=== PATIENT | female | born 1995 | race Caucasian/White ===

== ENCOUNTER 2019-04-14 22:20 | Inpatient (IN) | payer MEDICAID ==
[2019-04-14] MEDS ORDERED: LACTATED RINGER'S 1,000 ML IV (23:23)
[2019-04-14] MEDS ORDERED: OXYTOCIN 30 UNITS/LR 500 ML IV (23:30)
[2019-04-14] MEDS ORDERED: MISOPROSTOL 200 MCG TAB PR (23:30)
[2019-04-14] MEDS ORDERED: BUTORPHANOL 2 MG INJ IV (23:30)
[2019-04-14] MEDS ORDERED: IBUPROFEN 600 MG TAB PO (23:30)
[2019-04-14] MEDS ORDERED: LIDOCAINE 1% (MPF) 30 ML INJ INJ (23:30)
[2019-04-14] MEDS ORDERED: CARBOPROST 250 MCG INJ IM (23:30)
[2019-04-14] MEDS ORDERED: METHYLERGONOVINE 0.2 MG INJ IM (23:30)
[2019-04-14] MEDS: LACTATED RINGER'S 1,000 ML IV (23:53)
[2019-04-15 00:08] LABS: ADD MAN DIFF? NO
[2019-04-15 00:11] LABS: BASOPHIL # 0.1 10^3/ul (0.0-0.1); BASOPHILS % 0.4 % (0.0-2.0); EOSINOPHILS # 0.1 10^3/ul (0.0-0.5); EOSINOPHILS % 0.7 % (0.0-7.0); HEMATOCRIT 41.3 % (37.0-47.0); HEMOGLOBIN 13.9 g/dl (12.0-16.0); LYMPHOCYTES # 2.4 10^3/ul (0.8-2.9); LYMPHOCYTES % 17.6 % (15.0-51.0); MEAN CORPUSCULAR HEMOGLOBIN 29.6 pg (29.0-33.0); MEAN CORPUSCULAR HGB CONC 33.7 g/dl (32.0-37.0); MEAN CORPUSCULAR VOLUME 87.9 fl (82.0-101.0); MEAN PLATELET VOLUME 11.5 fl (7.4-10.4); MONOCYTE # 0.7 10^3/ul (0.3-0.9); MONOCYTES % 5.1 % (0.0-11.0); NEUTROPHIL # 10.3 10^3/ul (1.6-7.5); NEUTROPHILS % 74.9 % (39.0-77.0); PLATELET COUNT 225 10^3/UL (140-415); RED CELL DISTRIBUTION WIDTH 14.6 % (11.5-14.5)
[2019-04-15 00:11] LABS: WHITE BLOOD COUNT 13.7 10^3/ul (4.8-10.8)
[2019-04-15] MEDS: BUTORPHANOL 2 MG INJ IV (00:27)
[2019-04-15 00:40] LABS: INR 0.88; PT RATIO 0.9
[2019-04-15 00:41] LABS: PARTIAL THROMBOPLASTIN TIME 28.2 Sec (23.0-35.0)
[2019-04-15] MEDS: LACTATED RINGER'S 1,000 ML IV ×2 (01:26→02:55)
[2019-04-15] MEDS ORDERED: FENTAnyl 2MCG/ML-ROPIV 0.2% 100 ML (01:53)
[2019-04-15] MEDS ORDERED: DIPHENHYDRAMINE 50 MG INJ IV (03:30)
[2019-04-15] MEDS ORDERED: KETOROLAC 30 MG INJ IV (03:30)
[2019-04-15] MEDS ORDERED: ONDANSETRON 4 MG INJ IV (03:30)
[2019-04-15] MEDS ORDERED: TRIMETHOBENZAMIDE 100 MG/ML VIAL IM (03:30)
[2019-04-15] MEDS ORDERED: NALOXONE (0.4 MG/ML) INJ IV (03:30)
[2019-04-15] MEDS: OXYTOCIN 30 UNITS/LR 500 ML IV ×3 (04:49→08:32)
[2019-04-15] MEDS ORDERED: METHYLERGONOVINE 0.2 MG INJ IM (05:30)
[2019-04-15] MEDS ORDERED: DIBUCAINE 1% 30 GM OINT TOP (05:30)
[2019-04-15] MEDS ORDERED: MISOPROSTOL 200 MCG TAB PR (05:30)
[2019-04-15] MEDS ORDERED: OXYTOCIN 30 UNITS/LR 500 ML IV (05:30)
[2019-04-15] MEDS ORDERED: CARBOPROST 250 MCG INJ IM (05:30)
[2019-04-15] MEDS: BENZOCAINE 20% 56 ML SPRAY TOP (08:32)
[2019-04-15] MEDS: SENNA/DOCUSATE NA (8.6MG/50MG) TAB PO ×2 (08:32→20:40)
[2019-04-15] MEDS: WITCH HAZEL/GLYCERIN PAD PR (08:33)
[2019-04-15] MEDS: IBUPROFEN 600 MG TAB PO ×3 (08:33→16:20)
[2019-04-15] MEDS: LACTATED RINGER'S 1,000 ML IV* ×2 (08:42→13:13)
[2019-04-15 15:21] LABS: RAPID PLASMA REAGIN NONREACTIVE (NR)
[2019-04-15] MEDS: ACETAMINOPHEN 325 MG TAB PO (20:41)
[2019-04-16] MEDS: IBUPROFEN 600 MG TAB PO ×5 (00:07→18:10)
[2019-04-16] MEDS: HYDROCODONE/APAP (5/325) TAB PO ×2 (00:07→06:36)
[2019-04-16] MEDS: LACTATED RINGER'S 1,000 ML IV* ×4 (07:00→21:13)
[2019-04-16 08:39] LABS: ADD MAN DIFF? NO
[2019-04-16 08:44] LABS: WHITE BLOOD COUNT 15.3 10^3/ul (4.8-10.8)
[2019-04-16 08:44] LABS: BASOPHILS % 0.3 % (0.0-2.0); EOSINOPHILS # 0.3 10^3/ul (0.0-0.5); EOSINOPHILS % 1.9 % (0.0-7.0); HEMATOCRIT 36.1 % (37.0-47.0); HEMOGLOBIN 11.8 g/dl (12.0-16.0); LYMPHOCYTES # 3.4 10^3/ul (0.8-2.9); LYMPHOCYTES % 22.4 % (15.0-51.0); MEAN CORPUSCULAR HEMOGLOBIN 29.6 pg (29.0-33.0); MEAN CORPUSCULAR HGB CONC 32.7 g/dl (32.0-37.0); MEAN CORPUSCULAR VOLUME 90.5 fl (82.0-101.0); MEAN PLATELET VOLUME 11.3 fl (7.4-10.4); MONOCYTE # 0.7 10^3/ul (0.3-0.9); MONOCYTES % 4.3 % (0.0-11.0); NEUTROPHIL # 10.7 10^3/ul (1.6-7.5); NEUTROPHILS % 69.9 % (39.0-77.0); PLATELET COUNT 209 10^3/UL (140-415); RED BLOOD COUNT 3.99 10^6/ul (4.20-5.40); RED CELL DISTRIBUTION WIDTH 15.3 % (11.5-14.5)
[2019-04-16] MEDS: SENNA/DOCUSATE NA (8.6MG/50MG) TAB PO ×2 (09:57→21:39)
[2019-04-17] MEDS: IBUPROFEN 600 MG TAB PO ×3 (00:32→11:47)
[2019-04-17] MEDS: LACTATED RINGER'S 1,000 ML IV* (05:13)
[2019-04-17] MEDS: HYDROCODONE/APAP (5/325) TAB PO (08:06)
[2019-04-17] MEDS: SENNA/DOCUSATE NA (8.6MG/50MG) TAB PO (10:47)
[2019-04-17] MEDS: DIPHTH/TET/ACEL PERTUSS (ADULT) 0.5 ML VIAL IM* (11:04)
[2019-04-17 11:13] LABS: ADD MAN DIFF? NO
[2019-04-17 11:15] LABS: WHITE BLOOD COUNT 12.7 10^3/ul (4.8-10.8)
[2019-04-17 11:15] LABS: BASOPHILS % 0.2 % (0.0-2.0); EOSINOPHILS # 0.3 10^3/ul (0.0-0.5); EOSINOPHILS % 2.2 % (0.0-7.0); HEMATOCRIT 34.5 % (37.0-47.0); HEMOGLOBIN 11.3 g/dl (12.0-16.0); LYMPHOCYTES # 2.4 10^3/ul (0.8-2.9); LYMPHOCYTES % 18.4 % (15.0-51.0); MEAN CORPUSCULAR HEMOGLOBIN 29.3 pg (29.0-33.0); MEAN CORPUSCULAR HGB CONC 32.8 g/dl (32.0-37.0); MEAN CORPUSCULAR VOLUME 89.4 fl (82.0-101.0); MONOCYTE # 0.7 10^3/ul (0.3-0.9); MONOCYTES % 5.3 % (0.0-11.0); NEUTROPHIL # 9.2 10^3/ul (1.6-7.5); NEUTROPHILS % 72.1 % (39.0-77.0); PLATELET COUNT 228 10^3/UL (140-415); RED BLOOD COUNT 3.86 10^6/ul (4.20-5.40); RED CELL DISTRIBUTION WIDTH 14.9 % (11.5-14.5)
[2019-04-17] MEDS: BISACODYL 10 MG SUPP PR (11:47)
[2019-04-17] MEDS: DOCOSANOL 2 GM CREAM TOP (14:29)
== END 2019-04-17 16:00 | disposition home or self-care (01) | DRG 807 ==
LOC: OBT 22:20 → PP1 04-15 05:27 → L-D 22:20 → PP1 04-15 08:02 → OBT 23:15 → L-D 23:15
PROVIDERS: Obstetrics & Gynecology
PROC: 10E0XZZ Delivery of Products of Conception, External Approach (ICD-10-PCS; principal; 2019-04-15)
DX: O62.9 Abnormality of forces of labor, unspecified (principal); Z37.0 Single live birth; Z3A.39 39 weeks gestation of pregnancy
CPT/HCPCS: 62322; 85025; 85610; 85730; 86592; 86850; 86900; 86901; 90715